=== PATIENT | female | born 1965 | race African-American/Black ===

== ENCOUNTER → 2016-10-09 | Outpatient (CLI) | payer OTHER ==
--- NOTE | 2016-10-09 14:30 | RAD ---
DATE: 10/09/2016 EXAM: DIGITAL SCREEN BILAT W/CAD HISTORY: 51-year-old female for first time mammogram. COMPARISON: None This study was interpreted with the benefit of Computerized Aided Detection (CAD). FINDINGS: Breast Density: FATTY The Breast Parenchyma is primarily fatty replaced. Breast parenchyma level density A.. Nodular densities in the outer aspect of the right breast only seen on CC view approximately 15 cm from the nipple. No suspicious calcifications, spiculated mass or architectural distortion. Left breast show no abnormality. IMPRESSION: Nodular densities within outer aspect of the right breast only seen on CC view most likely intraparenchymal lymph nodes. However, ultrasound confirmation is recommended. BI-RADS CATEGORY: 0 INCOMPLETE: NEED ADDITIONAL IMAGING EVAULATION AND/OR PRIOR MAMMOGRAMS FOR COMPARISON RECOMMENDED FOLLOW-UP: ADD ADDITIONAL IMAGING . Targeted ultrasound of the right breast outer quadrant. PQRS compliance statement: Mammography is a sensitive method for finding small breast cancers, but it does not detect them all and is not a substitute for careful clinical examination. A negative mammogram does not negate a clinically suspicious finding and should not result in delay in biopsying a clinically suspicious abnormality. "Our facility is accredited by the [employer] Mammography [employer]."
--- NOTE | 2016-10-09 15:40 | RAD ---
Pelvic x-rays Indication: Chronic bilateral hip pain. No known injury. Technique: AP pelvis and 2 views of the bilateral hip joints Comparison: None Findings: No acute fracture or dislocation. No significant joint space narrowing or productive changes to suggest advanced osteoarthritis. Multiple phleboliths in the pelvis. SI joints within normal limits. Impression: No acute fracture or dislocation. No significant evidence of osteoarthritis.
--- NOTE | 2016-10-09 16:08 | RAD ---
Bilateral knees, 6 views, 10/09/2016: History: Pain No fracture or dislocation is identified. There is only minimal spurring at the patellofemoral articulations. No joint effusion is evident. IMPRESSION: No acute knee abnormality is detected.
== END | disposition home or self-care (01) ==
LOC: MAMMO 12:20
PROVIDERS: ATTEND Family Medicine
DX: Z12.31 Encounter for screening mammogram for malignant neoplasm of breast (principal); M25.561 Pain in right knee; M25.562 Pain in left knee; M25.551 Pain in right hip; M25.552 Pain in left hip
CPT/HCPCS: 73521; 73562; G0202; 77067

== ENCOUNTER → 2016-10-18 | Outpatient (CLI) | payer OTHER ==
--- NOTE | 2016-10-18 15:29 | RAD ---
Exam performed: Right breast ultrasound. History: Abnormal right mammogram. Date of service: 10/18/16. Comparison: Screening mammogram from 10/06/16. Discussion: Targeted sonographic evaluation of the upper outer right breast is performed in the area of mammographic concern. Well-defined 1.1 x 0.9 x 1.5 cm lymph node is seen at 10:30 o'clock position, 16 cm from the nipple. This corresponds to the mammographic abnormality. No additional lesions identified. Impression: Well-defined benign-appearing lymph node corresponds to the mammographic nodule. No further workup is considered necessary. Patient may return to annual screening mammogram. BI-RADS 2. Benign finding
== END | disposition home or self-care (01) ==
LOC: US 15:04
PROVIDERS: ATTEND Family Medicine
DX: N63 Unspecified lump in breast (principal)
CPT/HCPCS: 76641